=== PATIENT | male | born 1950 | race Caucasian/White ===

== ENCOUNTER 2020-07-14 23:56 | Inpatient (IN) | payer MEDICARE ==
[~2020-07-14] VITALS: Ht 185.4 cm; Wt 65.0 kg
[2020-07-15] VITALS (8 sets, daily range): BP systolic 103–120; BP diastolic 51–58
[2020-07-15 00:25] LABS: BASO % 0.4 % (0.0-1.0); EOS # 0.2 10*3/uL (0.0-0.4); EOS % 3.2 % (1.0-4.0); HEMATOCRIT 37.5 % (42.0-52.0); LYMPH # 1.3 10*3/uL (1.3-4.4); LYMPH % 18.3 % (27.0-41.0); MEAN CELL VOLUME 88.7 fl (80.0-94.0); MEAN CORPUSCULAR HGB 25.5 pg (27.0-31.0); MEAN CORPUSCULAR HGB CONC 28.8 g/dl (33.0-37.0); MEAN PLATELET VOLUME 8.3 fl (9.6-12.3); MONO # 0.7 10*3/uL (0.1-1.0); MONO % 10.4 % (3.0-9.0); NEUT # 4.7 10*3/uL (2.3-7.9); NEUT % 67.1 % (47.0-73.0); PLATELET COUNT AUTOMATED 303 10*3/uL (130-400); RED BLOOD COUNT 4.23 10*6/uL (4.50-5.90); RED CELL DISTRI WIDTH 14.1 % (0-14.5); WHITE BLOOD COUNT 6.9 10*3/uL (4.8-10.8)
[2020-07-15 00:43] LABS: ALBUMIN 2.1 gm/dl (3.1-4.5); ALKALINE PHOSPHATASE 120 U/L (45-117); BUN 16 mg/dl (7-24); CHLORIDE 99 mmol/L (98-107); CREATININE 0.86 mg/dL (0.70-1.30); POTASSIUM 3.6 mmol/L (3.5-5.1); SGOT/AST 13 IU/L (3-35); SGPT/ALT 12 U/L (12-78); SODIUM 136 mmol/L (136-145); TOTAL PROTEIN 7.1 gm/dL (6.4-8.2)
[2020-07-15 00:47] LABS: TROPONIN I < 0.015 ng/ml (<0.045)
[2020-07-15] MEDS ORDERED: GLUCOPHAGE500 M1 PO (02:24)
[2020-07-15] MEDS ORDERED: EFFIENT10 M1 PO (02:25)
[2020-07-15] MEDS ORDERED: THEO-24400 MG PO (02:25)
[2020-07-15] MEDS ORDERED: PREDNISONE5 MG PO (02:26)
[2020-07-15] MEDS ORDERED: FAMOTIDINE40 MG PO (02:27)
[2020-07-15] MEDS ORDERED: CARVEDILOL3.125 MG PO (02:28)
[2020-07-15] MEDS ORDERED: AZELASTIN-FLUTI23 GM NAS (02:28)
[2020-07-15] MEDS ORDERED: ANORO ELLIPTA1 EACH INH (02:30)
[2020-07-15] MEDS ORDERED: VENT7GM INH (02:30)
[2020-07-15] MEDS ORDERED: LOSARTAN POTASS25 M1 PO (02:31)
[2020-07-15] MEDS ORDERED: CRESTOR40 M1 PO (02:31)
[2020-07-15] MEDS ORDERED: ASPIRIN ADULT L81 M1 PO (02:32)
[2020-07-15 06:27] LABS: BASO % 0.3 % (0.0-1.0); EOS # 0.2 10*3/uL (0.0-0.4); HEMATOCRIT 35.6 % (42.0-52.0); LYMPH # 1.2 10*3/uL (1.3-4.4); LYMPH % 19.7 % (27.0-41.0); MEAN CELL VOLUME 87.5 fl (80.0-94.0); MEAN CORPUSCULAR HGB 25.3 pg (27.0-31.0); MEAN CORPUSCULAR HGB CONC 28.9 g/dl (33.0-37.0); MONO # 0.7 10*3/uL (0.1-1.0); MONO % 11.1 % (3.0-9.0); NEUT # 4.1 10*3/uL (2.3-7.9); NEUT % 65.4 % (47.0-73.0); PLATELET COUNT AUTOMATED 245 10*3/uL (130-400); RED BLOOD COUNT 4.07 10*6/uL (4.50-5.90); RED CELL DISTRI WIDTH 14.2 % (0-14.5); WHITE BLOOD COUNT 6.2 10*3/uL (4.8-10.8)
[2020-07-15 06:38] LABS: ACT PARTIAL THROMBO TIME 27.5 SECONDS (20.0-32.1); INTERNATIONAL NORM RATIO 1.1 (2.0-3.5)
[2020-07-15 06:43] LABS: ALBUMIN 2.1 gm/dl (3.1-4.5); BUN 17 mg/dl (7-24); CHLORIDE 100 mmol/L (98-107); CHOLESTEROL 77 mg/dL (<200); CREATININE 0.86 mg/dL (0.70-1.30); LDL CHOLESTEROL 30 mg/dL (9-159); POTASSIUM 3.4 mmol/L (3.5-5.1); SGOT/AST 13 IU/L (3-35); SGPT/ALT 11 U/L (12-78); SODIUM 136 mmol/L (136-145); TOTAL PROTEIN 6.7 gm/dL (6.4-8.2); TRIGLYCERIDES 85 mg/dl (<150)
[2020-07-15 06:46] LABS: ALKALINE PHOSPHATASE 111 U/L (45-117)
[2020-07-15 06:48] LABS: THYROID STIM HORMONE (HS) 0.461 uIU/ml (0.358-4.75)
[2020-07-15 08:25] LABS: VITAMIN D, 25-HYDROXY 17.3 ng/mL (30-100)
[2020-07-15 09:51] LABS: BILIRUBIN Negative (Negative); BLOOD Trace-Lysed (Negative); CLARITY Cloudy (Clear); COLOR Yellow (Yellow); GLUCOSE Negative (Negative); KETONE Trace (Negative); LEUKO ESTERASE Trace (Negative); NITRITE Negative (Negative)
[2020-07-15 10:25] LABS: BACTERIA 3+; COARSE GRANULAR CAST TNTC; EPITHELIAL CELLS 21-30; MUCOUS 2+; WBC 21-30 wbc/hpf (0-5)
[2020-07-15] MEDS ORDERED: HYDROCODONE-AC1 EAC1 PO (16:22)
== END 2020-07-15 17:31 | disposition home health service (06) | DRG 91 ==
LOC: ED 23:56 → EDHOLD 07-15 02:22 → 5E 07-15 02:22
PROVIDERS: Hospitalist; Internal Medicine; ADMIT Internal Medicine; ATTEND Internal Medicine
PROC: 4A02XM4 Measurement of Cardiac Total Activity, External Approach (ICD-10-PCS; principal; 2020-07-15)
PROC: 3E073KZ Introduction of Other Diagnostic Substance into Coronary Artery, Percutaneous Approach (ICD-10-PCS; 2020-07-15)
DX: G89.29 Other chronic pain (principal); E43 Unspecified severe protein-calorie malnutrition; E87.3 Alkalosis; I25.110 Atherosclerotic heart disease of native coronary artery with unstable angina pectoris; Z68.1 Body mass index [BMI] 19.9 or less, adult; K21.9 Gastro-esophageal reflux disease without esophagitis; F41.9 Anxiety disorder, unspecified; R07.9 Chest pain, unspecified; J44.9 Chronic obstructive pulmonary disease, unspecified; D64.9 Anemia, unspecified; R74.8 Abnormal levels of other serum enzymes; M19.90 Unspecified osteoarthritis, unspecified site; F17.210 Nicotine dependence, cigarettes, uncomplicated; E55.9 Vitamin D deficiency, unspecified; E11.65 Type 2 diabetes mellitus with hyperglycemia; E53.8 Deficiency of other specified B group vitamins; I10 Essential (primary) hypertension; I25.2 Old myocardial infarction; Z95.5 Presence of coronary angioplasty implant and graft; Z98.49 Cataract extraction status, unspecified eye; Z80.3 Family history of malignant neoplasm of breast; Z84.89 Family history of other specified conditions; Z79.899 Other long term (current) drug therapy; Z79.82 Long term (current) use of aspirin; Z71.6 Tobacco abuse counseling

== ENCOUNTER → 2020-08-03 | Outpatient (CLI) | payer MEDICARE ==
[~2020-08-03] MED LIST: ANORO ELLIPTA1 EACH INH; ASPIRIN ADULT L81 M1 PO; AZELASTIN-FLUTI23 GM NAS; CARVEDILOL3.125 MG PO; CRESTOR40 M1 PO; EFFIENT10 M1 PO; FAMOTIDINE40 MG PO; GLUCOPHAGE500 M1 PO; HYDROCODONE-AC1 EAC1 PO; LOSARTAN POTASS25 M1 PO; PREDNISONE5 MG PO; THEO-24400 MG PO; VENT7GM INH
[2020-08-03 11:38] LABS: BASO % 0.4 % (0.0-1.0); EOS # 0.4 10*3/uL (0.0-0.4); EOS % 3.6 % (1.0-4.0); HEMATOCRIT 36.7 % (42.0-52.0); LYMPH # 1.7 10*3/uL (1.3-4.4); MEAN CELL VOLUME 86.4 fl (80.0-94.0); MEAN CORPUSCULAR HGB 24.9 pg (27.0-31.0); MEAN CORPUSCULAR HGB CONC 28.9 g/dl (33.0-37.0); MEAN PLATELET VOLUME 7.9 fl (9.6-12.3); MONO # 1.1 10*3/uL (0.1-1.0); MONO % 9.2 % (3.0-9.0); NEUT # 8.2 10*3/uL (2.3-7.9); NEUT % 71.4 % (47.0-73.0); PLATELET COUNT AUTOMATED 316 10*3/uL (130-400); RED BLOOD COUNT 4.25 10*6/uL (4.50-5.90); RED CELL DISTRI WIDTH 14.6 % (0-14.5); WHITE BLOOD COUNT 11.4 10*3/uL (4.8-10.8)
[2020-08-03 12:07] LABS: ALBUMIN 2.2 gm/dl (3.1-4.5); ALKALINE PHOSPHATASE 155 U/L (45-117); BUN 13 mg/dl (7-24); CHLORIDE 99 mmol/L (98-107); CREATININE 0.97 mg/dL (0.70-1.30); POTASSIUM 3.2 mmol/L (3.5-5.1); SGOT/AST 23 IU/L (3-35); SGPT/ALT 15 U/L (12-78); SODIUM 137 mmol/L (136-145); TOTAL PROTEIN 7.6 gm/dL (6.4-8.2)
[2020-08-04 12:07] LABS: ANTI-DSDNA ANTIBODIES <1 IU/mL (0-9); ANTI-RNP ANTIBODIES 0.6 AI (0.0-0.9); ANTICHROMATIN ANTIBODIES <0.2 AI (0.0-0.9); ANTISCLERODERMA-70 AB <0.2 AI (0.0-0.9); RHEUMATOID ARTHRITIS FACTOR 610.8 IU/mL (0.0-13.9); SJOGREN ANTI-SS-A <0.2 AI (0.0-0.9); SJOREN AB, ANTI-SS-B <0.2 AI (0.0-0.9)
[2020-08-05 00:06] LABS: CCP ANTIBODIES IGG/IGA >250 units (0-19)
== END | disposition home or self-care (01) ==
LOC: RESCLI 01:12
PROVIDERS: Internal Medicine; ATTEND Family Medicine
DX: M06.9 Rheumatoid arthritis, unspecified (principal); I25.10 Atherosclerotic heart disease of native coronary artery without angina pectoris; J44.9 Chronic obstructive pulmonary disease, unspecified; E11.65 Type 2 diabetes mellitus with hyperglycemia; I25.2 Old myocardial infarction; M15.9 Polyosteoarthritis, unspecified; I10 Essential (primary) hypertension; K21.9 Gastro-esophageal reflux disease without esophagitis; Z76.89 Persons encountering health services in other specified circumstances; Z79.84 Long term (current) use of oral hypoglycemic drugs; Z79.899 Other long term (current) drug therapy